=== PATIENT | male | born 1950 | race Caucasian/White ===

== ENCOUNTER 2022-03-20 08:28 | Outpatient (CLI) | payer MEDICARE, BC | END 2022-03-20 08:29 | disposition home or self-care (01) | LOC: CSHCT 08:28 | PROVIDERS: ATTEND Family Medicine | DX: Z12.2 Encounter for screening for malignant neoplasm of respiratory organs (principal); Z87.891 Personal history of nicotine dependence; J44.9 Chronic obstructive pulmonary disease, unspecified | CPT/HCPCS: 71271 ==